=== PATIENT | male | born 1975 | race Caucasian/White ===

== ENCOUNTER → 2021-01-13 | Outpatient (CLI) | payer OTHER ==
[2021-01-13 09:25] VITALS: BP 128/89; PULSE 68; RESP 16; TEMP 97.8
--- NOTE | 2021-01-13 10:05 | P.PAINCN ---
History of Present Illness - Reason for Consult Consult date: 01/13/21 - History of Present Illness Neil is a 45-year-old gentleman presenting as a new patient consult. He presents as a consult from Dr. Cotter's office. He has low back pain with right leg lower extremity numbness and tingling with occasional weakness. He reports his pain is relatively new over the last month. He is at a history of low back pain but nothing this severe. He works as a physical job in a regular basis. Carmen e been doing pretty well up until recently. He seen Dr. Cotter who recommended he come to clinic for possible injections and possible surgery in the future. He is concerned because of the right leg numbness and tingling and occasional weakness in the foot. He denies any left-sided changes. He denies any bowel or bladder incontinence. He denies any upper extremity numbness tingling or weakness. Review of Systems: Denies any New chest pain, short of breath, Nausea/vomitting, abdominal pain, bowel or bladder incontinence, or any overt new neurologic symptoms in the upper or lower extremities outside of what is noted in the HPI Past Medical History Past Medical History: No Reported History History of Any Multi-Drug Resistant Organisms: None Reported Past Surgical History: No Surgical Hx Reported Smoking Status: Former smoker Additional Drug Use History / Comment(s): THC gummies Medications and Allergies Allergies Allergy/AdvReac Type Severity Reaction Status Date / Time No Known Allergies Allergy Verified 01/13/21 09:17 Physical Exam Vitals: Vital Signs Temp Pulse Resp BP Pulse Ox 01/13/21 09:08 97.8 F 68 16 128/89 97 Intake and Output 01/12/21 01/13/21 01/13/21 22:59 06:59 14:59 Other: Weight 88.451 kg General: Awake and alert oriented 3 no distress Respiratory exam: No audible wheezing no accessory muscle usage Cardiovascular exam: regular rate, palpable bilateral pulses, no lower extremity edema Abdominal exam: No distention nontender to palpation Cervical spine: Normal alignment, Spurling's negative, facet loading negative, [employer] strength is 5/5, malave negative Lumbar spine: Loss of lumbar lordosis, normal alignment, tender to palpation over bilateral paraspinal muscles, facet loading is positive bilaterally. Right straight leg raise is positive at about 45, lumbar spinal extension causes pain down the lateral right leg. Facet loading is negative bilaterally. Sacroiliac joints: Nontender to palpation, JOSÉ ANTONIO is negative, [place] negative Neuro exam: Normal sensation in bilateral upper extremities, deep tendon reflexes are 2+ bilateral upper extremities. Normal sensation in bilateral lower extremities. Deep tendon reflexes are 2+ in the left lower extremity, 1+ in the right patella and Achilles. There is no clonus noted. As evidence of right-sided dorsiflexion weakness and EHL weakness Psych exam: Cooperative, appropriate mood Assessment and Plan Assessment: #1 lumbar degenerative disc disease at L3-L4 #2 lumbar radiculopathy #3 neurogenic claudication Plan: Had along discussion with the patient and his , given the acuity of the symptoms and MRI findings detailed by Dr. Cotter's notes. I believe that conservative therapy is an option prior to having surgery. Dr. Cotter referred him here for potential epidural injections. The patient and his are going to visit Dr. Cotter tomorrow and will give us a call after that visit to determine if they like to have the injection first. If they do call for the injection, we should schedule him for a epidural steroid injection at the L3-L4 level. I have spent 36 minutes on patient care today. The time was used to review the medical records including relevant urine studies and Prescription history (MAPs), review of the available imaging, evaluation and examination of the patient, coordination of care with the medical staff and if applicable referring physicians, as well as creation of the medical record. PQRS Measure Charge Sheet PQRS Narrative: Blood Pressure 128/89 Pain Intensity [Lower Back] 3 Hx Alcohol Use (MH) Yes: socially
== END ==
LOC: PNWHC3 09:03
PROVIDERS: ATTEND Hospitalist
DX: M51.16 Intervertebral disc disorders with radiculopathy, lumbar region (principal); M48.062 Spinal stenosis, lumbar region with neurogenic claudication; Z87.891 Personal history of nicotine dependence
CPT/HCPCS: 99211